=== PATIENT | female | born 1965 | race Caucasian/White ===

== ENCOUNTER 2021-07-24 17:55 | Emergency (ER) | payer MEDICARE ==
[2021-07-24 18:17] VITALS: TEMP 97.9
[2021-07-24] MEDS ORDERED: LIDOCAINE 5% PATCH TOPICAL STA (19:35)
[2021-07-24] MEDS ORDERED: HYDROcodone/APAP 5-325MG 1 EACH TAB PO STA (19:35)
--- NOTE | 2021-07-24 20:26 | XR ---
Result: History: Pain. Comparison: None available. Technique: 4 views of the bilateral ribs with PA chest. Findings: There is suspicious nondisplaced fracture of the right sixth rib. The remaining visualized osseous s tructures are in anatomic alignment. The cardiac silhouette is within normal limits for size and appearance. The lungs are clear without evidence of focal consolidation, pleural effusion, pulmonary edema, or pneumothorax. Right upper quad rant post surgical clips seen. Impression: 1. Suspicious nondisplaced right lower rib fracture. 2. No acute cardiopulmonary abnormality.
--- NOTE | 2021-07-24 20:40 | ED ---
General Adult HPI - General Chief complaint: Back Pain/Injury Stated complaint: LT Side Pain Time Seen by Provider: 07/24/21 19:07 Source: patient, RN notes reviewed, old records reviewed Mode of arrival: EMS Limitations: no limitations - History of Present Illness Initial comments: I evaluated the patient when she was placed in a room.Patient is a 55-year-old female with past medical history remarkable for chronic pain who presents emergency Department complaining of a two-week history of left-sided rib pain. She states it 2 weeks ago she twisted funny and felt a "pop" along her left rib. Since that time she has been experiencing pain along that site. Her family made her come to the emergency department today for evaluation. She denies any trauma or falls. Denies any other injuries. Denies any other pain at this time. She denies any guille abdominal pain, other chest pain, dyspnea, nausea, vomiting, headache, lightheadedness. Denies any urinary complaints. She otherwise has no acute complaints at this time. Patient's concerned for possible muscle skeletal injury. - Related Data Home Medications Medication Instructions Recorded Confirmed FLUoxetine HCL [PROzac] 40 mg PO DAILY 07/24/21 07/24/21 Morphine Sulfate ER [Ms Contin] 15 mg PO Q12HR 07/24/21 07/24/21 QUEtiapine [SEROquel] 100 mg PO DAILY 07/24/21 07/24/21 oxyCODONE-APAP 10-325MG [Percocet 1 tab PO QID 07/24/21 07/24/21 10-325 mg] traZODone HCL 150 mg PO HS 07/24/21 07/24/21 Previous Rx's Medication Instructions Recorded Lidocaine 5% Patch [Lidoderm 5% 1 patch TOPICAL DAILY PRN 7 Days 07/24/21 Patch] #7 patch Allergies Allergy/AdvReac Type Severity Reaction Status Date / Time No Known Allergies Allergy Verified 07/24/21 20:06 Review of Systems ROS Statement: Those systems with pertinent positive or pertinent negative responses have been documented in the HPI. Review of Systems: CONST: Denies fever EYES: Denies blurry vision ENT: Denies nasal congestion C/V: Denies Chest pain RESP: Denies shortness of breath GI: Denies abdominal pain : Denies dysuria SKIN: Denies rash. MSK: Endorses left lower rib pain NEURO: Denies headache ROS Other: All systems not noted in ROS Statement are negative. Past Medical History Past Medical History: Hyperlipidemia History of Any Multi-Drug Resistant Organisms: None Reported Past Surgical History: Back Surgery, Joint Replacement Additional Past Surgical History / Comment(s): Neck surgery Past Psychological History: No Psychological Hx Reported Smoking Status: Current every day smoker Past Alcohol Use History: None Reported Past Drug Use History: None Reported General Exam - General Exam Comments Initial Comments: General: Appears in no acute distress. HEAD: Normal with no signs of head trauma. EYES: EOMI ENT: Hearing grossly intact, normal oropharynx. RESPIRATORY: Clear breath sounds bilaterally. No wheezes, rales, or rhonchi. C/V: Regular rate and rhythm. S1 and S2 auscultated, no edema, peripheral pulses 2+ and intact throughout ABD: Abd is soft, nontender, nondistended EXT: Patient has left inferior rib pain along the 11th and 12th ribs as well as the intercostal spaces between them. No obvious deformity. SKIN: No rashes or lesions observed on exposed skin. NEURO: Alert and oriented 4. Limitations: no limitations Course Vital Signs 07/24/21 07/24/21 18:13 21:15 Temperature 97.9 F 97.9 F Pulse Rate 86 72 Respiratory 16 18 Rate Blood Pressure 106/60 133/70 O2 Sat by Pulse 99 97 Oximetry Medical Decision Making - Medical Decision Making Based on the patient's presentation and physical exam, I'm concerned for either a musculoskeletal strain versus possible rib fracture of the patient's left inferior ribs. We will obtain a rib series x-ray and provide the patient with analgesia with a Bryant pill. Patient was also given lidocaine patch. She was in agreement this plan. I do not believe that she present further laboratory studies at this time. Imaging revealed concerned for possible nondisplaced right lower rib fracture, not left lower lobe fracture where she has pain. She has no pain on the right side. I discussed this with the patient explained that she is likely experiencing a musculoskeletal strain. If this were rib fracture, there would be no treatment other than pain control. She will expressed understanding. I do believe it is safer to be discharged home this time. She will also be given an incentive spirometer on the off chance that she has a rib fracture. I will provide the patient with a prescription for lidocaine patch. I instructed the patient to follow up with their PCP in the next 3 days. I explained that the patient should return to the emergency department if they experience any worsening symptoms. Strict return precautions were discussed with the patient. The patient expressed understanding of these instructions. I answered all questions that the patient had. The patient was discharged home in fair condition with their prescriptions and follow up information. Disposition Clinical Impression: Rib fracture, Muscle strain Disposition: HOME SELF-CARE Condition: Fair Instructions (If sedation given, give patient instructions): Rib Fracture (ED) Prescriptions: Lidocaine 5% Patch [Lidoderm 5% Patch] 1 patch TOPICAL DAILY PRN 7 Days #7 patch PRN Reason: Pain Is patient prescribed a controlled substance at d/c from ED?: No Referrals: Melvin Mathur DO [Primary Care Provider] - 1-2 days
[2021-07-24 21:17] VITALS: BP 133/70; PULSE 72; RESP 18
== END 2021-07-24 21:17 | disposition home or self-care (01) ==
LOC: EC 17:55
DX: S22.42XA Multiple fractures of ribs, left side, initial encounter for closed fracture (principal); E78.5 Hyperlipidemia, unspecified; F17.200 Nicotine dependence, unspecified, uncomplicated; Z79.899 Other long term (current) drug therapy; X50.1XXA Overexertion from prolonged static or awkward postures, initial encounter
CPT/HCPCS: 71111; 99283

== ENCOUNTER → 2022-04-02 | Outpatient (CLI) | payer MEDICARE ==
--- NOTE | 2022-04-03 07:33 | CTL ---
EXAMINATION TYPE: CT Low Dose Lung DATE OF EXAM ORDERED: 04/02/2022 HISTORY: Long-term tobacco use. Lung cancer screening CT DLP: 101.[address] CTDI: 3.10 mGy Automated exposure control for dose reduction was used. SCREENING VISIT: Baseline COMPARISON: None TECHNIQUE: Low dose computed tomography scan was performed through the chest at 1 mm thick sections a nd reconstructed images in multiple planes at 1 mm and [address] DIAGNOSTIC QUALITY: Satisfactory FINDINGS: LUNG NODULES: None. LUNGS: COPD: Severity: None Fibrosis: Severity: None Lymph nodes: None Other findings: None RIGHT PLEURAL SPACE: Effusion: None Calcification: None Thickening: None Pneumothorax: None LEFT PLEURAL SPACE: Effusion: None Calcification: None Thickening: None Pneumothorax: None HEART: Heart Size: Normal Coronary Calcification: Mild Pericardial Effusion: None OTHER FINDINGS: Upper abdomen: Cholecystectomy clips Bony thorax: Underlying scoliotic curvature. Surgical change in the lower cervical spine is partially imaged. Supraclavicular region: None Other: None IMPRESSION: No suspicious nodules. CT LUNG RAD AND CT CHEST RECOMMENDATION: Lung-Rad 1 Negative: Continue annual screening with LDCT in 12 months. S Modifier (other clinically significant findings): None
== END | disposition home or self-care (01) ==
LOC: RADCTMAIN 15:34
PROVIDERS: ATTEND Family Medicine
DX: Z12.2 Encounter for screening for malignant neoplasm of respiratory organs (principal); Z87.891 Personal history of nicotine dependence
CPT/HCPCS: 71271

== ENCOUNTER → 2022-04-08 | Outpatient (CLI) | payer MEDICARE ==
--- NOTE | 2022-04-09 07:33 | US ---
EXAMINATION TYPE: US carotid duplex BILAT DATE OF EXAM: 04/08/2022 COMPARISON: NONE CLINICAL HISTORY: R09.89 SIGNS INVOLVING THE CIRC AND RESP SYSTEMS. EXAM MEASUREMENTS: RIGHT: Peak Systolic Velocity (PSV) cm/sec ----- Right CCA: 116.0 ----- Right ICA: 90.1 ----- Right ECA: 91.1 ICA/CCA ratio: 0.78 RIGHT: End Diastole cm/sec ----- Right CCA: 35.9 ----- Right ICA: 40.3 ----- Right ECA: 20.8 LEFT: Peak Systolic Velocity (PSV) cm/sec ----- Left CCA: 94.2 ----- Left ICA: 110.0 ----- Left ECA: 72.8 ICA/CCA ratio: 1.2 LEFT: End Diastole cm/sec ----- Left CCA: 35.7 ----- Left ICA: 53.9 ----- Left ECA: 18.8 VERTEBRALS (direction of flow): Right Vertebral: Antegrade Left Vertebral: Antegrade Rhythm: Normal No significant stenosis seen; mild plaque formation seen left carotid bulb. IMPRESSION: 1. Mild atheromatous plaquing without significant flow-limiting stenosis. Criteria for Assigning % of Stenosis / Diameter reduction (Estimation based on the indirect measurements of the internal carotid artery velocities (ICA PSV). 1. Normal (no stenosis)=ICA PSV < 125 cm/s: ratio < 2.0: ICA EDV<40 cm/s. 2. Less than 50% stenosis=ICA PSV < 125 cm/s: ratio < 2.0: ICA EDV<40 cm/s. 3. 50 to 69% stenosis=ICA PSV of 125 to 230 cm/s: ration 2.0 ? 4.0: ICA EDV 40-100 cm/s. 4. Greater than 70% stenosis to near occlusion= ICA PSV > 230 cm/s: ratio > 4.0: ICA EDV > 100 cm/s. 5. Near occlusion= ICA PSV velocities may be low or undetectable: variable ratio and ICA EDV. 6. Total occlusion=unable to detect flow.
== END | disposition home or self-care (01) ==
LOC: RADUSWWP 16:53
PROVIDERS: ATTEND Family Medicine
DX: I65.23 Occlusion and stenosis of bilateral carotid arteries (principal)
CPT/HCPCS: 93880